=== PATIENT | male | born 1945 | race African-American/Black ===

== ENCOUNTER 2022-08-21 17:27 | Emergency (ER) | payer MEDICARE ==
[~2022-08-21] VITALS: Ht 188 cm; Wt 88.0 kg
[~2022-08-21 17:27] MED LIST: HYDR25TA PO; METF-414 PO
[2022-08-21] MEDS ORDERED: SODIUM CHLORIDE 0.9% 1,000 ML IV ONE (18:15)
[2022-08-21] MEDS ORDERED: ASPIRIN 81MG TABLET PO ONE (18:15)
[2022-08-21 18:42] LABS: BASOPHILS % 0.5 % (0.0-2.0); EOSINOPHILS % 0.7 % (0.0-5.0); HEMATOCRIT. 38.9 % (42.0-52.0); HEMOGLOBIN. 12.9 g/dL (14.0-18.0); LYMPHOCYTES % 11.9 % (20.0-50.0); MEAN CORPUSCULAR HEMOGLOBIN 27.5 pg (28.0-32.0); MEAN CORPUSCULAR VOLUME 83.1 fL (80.0-94.0); MEAN PLATELET VOLUME 9.7 fl (7.4-10.4); MONOCYTES % 6.3 % (2.0-8.0); NEUTROPHILS % 80.6 % (40.0-76.0); PLATELET 152 x1000/uL (130-400); RED BLOOD CELL COUNT 4.68 mill/uL (4.7-6.1); RED CELL DISTRIBUTION WIDTH 14.7 % (11.6-14.6)
[2022-08-21 18:49] LABS: CHLORIDE 103 mEq/L (98-107)
[2022-08-21 20:40] VITALS: BP 135/80
== END 2022-08-21 20:43 | disposition home or self-care (01) ==
LOC: ER 17:27
DX: R55 Syncope and collapse (principal); F12.10 Cannabis abuse, uncomplicated; I10 Essential (primary) hypertension; E11.9 Type 2 diabetes mellitus without complications; Z79.84 Long term (current) use of oral hypoglycemic drugs
CPT/HCPCS: 36415; 71045; 80053; 83880; 84484; 85025; 93005; 99285; J7030